=== PATIENT | female | born 1985 | race Caucasian/White ===

== ENCOUNTER 2018-12-12 18:09 | Emergency (ER) | payer MEDICAID ==
[~2018-12-12] VITALS: Ht 172.7 cm; Wt 74.8 kg
--- NOTE | 2018-12-12 18:24 | NUR ---
Patient is Aox4. Patient is seen eating his own food, +good appetite, pending MD evaluation, NAD. Addendum: 12/12/18 at 1847 by JUSTUS ...eating her own food,+good appetite.
[2018-12-12 18:55] LABS: *BLOOD, URINE 3+ (NEGATIVE); *CLARITY,URINE CLOUDY (CLEAR); *COLOR,URINE DARK YELLOW (YELLOW); *KETONES,URINE 1+ (NEGATIVE); LEUKOCYTE ESTERASE ,URINE 1+ (NEGATIVE); NITRITE, URINE NEGATIVE (NEGATIVE); PH,URINE 5.5 (5.0-8.0); UGLUCOSE NEGATIVE (NEGATIVE)
[2018-12-12 18:58] LABS: *BILIRUBIN,URIN 2+ (NEGATIVE); *URINE HCG, QUAL NEGATIVE (NEGATIVE)
[2018-12-12 19:03] LABS: BACTERIA,URINE FEW /HPF (NONE SEEN); SQUAMOUS EPITHELIAL CELL,UR FEW /HPF (NONE SEEN); WBC,URINE 20-50 /HPF (0-3)
--- NOTE | 2018-12-12 19:07 | NUR ---
Recieved report from Emma, pt. resting in bed w/ eyes open, assumed care of pt., Rad. called for negative preg. test result, awaiting nasal xray
--- NOTE | 2018-12-12 19:15 | NUR ---
Rad. tech @ bedside for nasal Xray
--- NOTE | 2018-12-12 19:57 | NUR ---
Patient discharged to home in stable conditon. Written and verbal after care instructions given. Patient verbalizes understanding of instructions. Pt. d/c w/ prescription per MD, d/c papers signed, homeless pt. waiver form signed and custodial information given - pt. declines assistance w/ placement and transportation - she will contact the custodial during normal business hours tomorrow, ID band removed, ambulated out of ED w/ steady gait, NAD
[2018-12-12 20:01] VITALS: BP 121/91
== END 2018-12-12 20:04 | disposition home or self-care (01) ==
LOC: ER 18:09
DX: S00.33XA Contusion of nose, initial encounter (principal); N39.0 Urinary tract infection, site not specified; L98.499 Non-pressure chronic ulcer of skin of other sites with unspecified severity; L08.9 Local infection of the skin and subcutaneous tissue, unspecified; F17.290 Nicotine dependence, other tobacco product, uncomplicated; Z59.0 Homelessness; W51.XXXA Accidental striking against or bumped into by another person, initial encounter; Y93.89 Activity, other specified; Y92.89 Other specified places as the place of occurrence of the external cause; Y99.8 Other external cause status
CPT/HCPCS: 70160; 84703; A4663

== ENCOUNTER 2019-02-14 15:35 | Emergency (ER) | payer MEDICAID ==
[~2019-02-14] VITALS: Ht 172.7 cm; Wt 72.6 kg
[2019-02-14] MEDS ORDERED: HYDROCODONE/APAP 10-325 MG TABLET ONE (16:13)
[2019-02-14] MEDS ORDERED: HYDROCODONE/APAP 10-325 MG TABLET PO ONE (16:15)
--- NOTE | 2019-02-14 16:15 | NUR ---
RECEIVED A 33 Y/O FEMALE PT C/O LT UPPER TOOTH ACHE, SEEN BY MD, GIVEN PAIN KILLER, PT FOR DISCHARGE . DISCHARGE INSTRUCTIONS GIVEN AND PRESCRIPTION GIVEN. PT VERBALIZED UNDERSTANDING. AND GIVEN PRIMARY MILL ROLLER FOR TRANSPORTATION.
== END 2019-02-14 16:21 | disposition home or self-care (01) ==
LOC: ER 15:36
DX: K08.89 Other specified disorders of teeth and supporting structures (principal); F17.200 Nicotine dependence, unspecified, uncomplicated; F15.10 Other stimulant abuse, uncomplicated
CPT/HCPCS: A4663

== ENCOUNTER 2019-02-21 18:29 | Emergency (ER) | payer MEDICAID ==
[~2019-02-21] VITALS: Ht 172.7 cm; Wt 72.6 kg
--- NOTE | 2019-02-21 18:49 | NUR ---
at the bedside for MSE.
[2019-02-21] MEDS ORDERED: HYDROMORPHONE 2 MG/1 ML DISP.SYRIN ONE (18:56)
[2019-02-21] MEDS ORDERED: ONDANSETRON 4 MG/2 ML VIAL ONE (18:56)
[2019-02-21] MEDS ORDERED: HYDROMORPHONE 1 MG/1 ML DISP.SYRIN IM ONE (19:00)
[2019-02-21] MEDS ORDERED: ONDANSETRON 4 MG/2 ML VIAL IM ONE (19:00)
--- NOTE | 2019-02-21 19:01 | NUR ---
Patient given written and verbal discharge instructions. Patient verbalizes understanding of instructions. Patient is ambulatory with steady gait. Refuses offer of [place] [facility] [place]. Patient given list of available shelters in surrounding area.PT REFUSED TO STAY FOR CASTING FINISHER. PT WAS TOLD THAT SHE CAN COME BACK TOMMOROW TO SEE THE CASTING FINISHER. NEW CLOTHING WAS GIVEN TO PT. PT REFUSED SANDWICH AT THIS TIME. PT WAS GVEN THE RESOURCES FOR TAKING CARE OF THE TOOTH PROBLEM. PT SAID WILL FOLLOW UP TOMORROW.
== END 2019-02-21 19:10 | disposition home or self-care (01) ==
LOC: ER 18:29
DX: K08.89 Other specified disorders of teeth and supporting structures (principal); F17.200 Nicotine dependence, unspecified, uncomplicated; F12.10 Cannabis abuse, uncomplicated
CPT/HCPCS: 96372 ×2; 99283; J1170; J2405; A4663

== ENCOUNTER 2019-03-23 14:36 | Emergency (ER) | payer MEDICAID ==
[~2019-03-23] VITALS: Ht 172.7 cm; Wt 74.8 kg
--- NOTE | 2019-03-23 15:47 | NUR ---
Patient discharged to home in stable conditon. Written and verbal after care instructions given. Patient verbalizes understanding of instructions. Pt was seen by the social work program coordinator, pt was given clothes and food, pt declined longterm placement.
--- NOTE | 2019-03-23 15:50 | NUR ---
3:10pm: SS consultation requested. SW arrived to the ED and spoke with TEMI Cervantes regarding patient and need for SS consultation. SW then met with patient, who was in her assigned ED bed. Patient is a 33 year old female, homeless, alert, oriented x 4, cooperative and pleasant, receptive to meeting with this SW. Patient stated that she came to the ED today for wound care on her leg. Patient stated that she has been homeless since 2010, and lives with a friend in a nearby homeless camp. Patient stated she would be going back there after she is discharged. Patient has [employer] insurance, receives GR and food stamps. Hx and current use of cigarettes and meth. Patient provided the ED with the name/phone number of her father, for emergency purposes, and stated that there was no reason to contact him today because she was fine and would be able to return to her previous living arrangement on her own. Patient stated she has a history of mental illness, however was not taking any medications at this time because "I don't like to take a lot of medications". SW then generated a discussion regarding different homeless resources that patient may be interested in, including mental health services and other community resources. SW asked patient if she would like to go to a fci instead of the homeless camp. Patient declined shelters, although was receptive to the resources discussed by this SW. SW provided patient with the following resources: 1) [facility] Homeless Resource Directory which includes a list of locations throughout the [facility], with dates and times, for places homeless individuals can go for hot meals, sack lunches, food pantries, and showers 2) List of mental health clinics, medical clinics, and substance abuse treatment programs throughout the [facility] 3) A list of pharmacies throughout the [facility] 4) A list of year round homeless shelters ([facility], [facility], [facility], [facility]). Patient stated she was receptive to taking this list, just in case she changes in mind in the future. A copy of all the above listed resources were filed in patient's chart. SW provided patient with a pair of pants and a shirt. A meal was also provided to the patient. Patient signed the Homeless Patient Waiver form, and stated that she will provide her own transportation from the ED and return to her previous living arrangement. Patient left the ED with stable gait.
== END 2019-03-23 15:48 | disposition home or self-care (01) ==
LOC: ER 14:36
DX: S01.81XD Laceration without foreign body of other part of head, subsequent encounter (principal); L08.9 Local infection of the skin and subcutaneous tissue, unspecified; F17.200 Nicotine dependence, unspecified, uncomplicated; F15.10 Other stimulant abuse, uncomplicated; X58.XXXD Exposure to other specified factors, subsequent encounter
CPT/HCPCS: A4663

== ENCOUNTER 2019-05-20 08:56 | Emergency (ER) | payer MEDICAID ==
[~2019-05-20] VITALS: Ht 172.7 cm; Wt 72.6 kg
--- NOTE | 2019-05-20 09:30 | NUR ---
CALLED [facility] PER PT'S REQUEST, ETA 2 HOURS.
[2019-05-20 09:44] LABS: *BILIRUBIN,URIN NEGATIVE (NEGATIVE); *BLOOD, URINE 3+ (NEGATIVE); *CLARITY,URINE CLOUDY (CLEAR); *COLOR,URINE YELLOW (YELLOW); *KETONES,URINE NEGATIVE (NEGATIVE); *UROBILINOGEN,URINE 0.2 E.U./dl (NORMAL); LEUKOCYTE ESTERASE ,URINE 1+ (NEGATIVE); NITRITE, URINE POSITIVE (NEGATIVE); UGLUCOSE NEGATIVE (NEGATIVE)
[2019-05-20 09:48] LABS: *URINE HCG, QUAL NEGATIVE (NEGATIVE)
[2019-05-20 09:54] LABS: WBC,URINE TNTC /HPF (0-3)
[2019-05-20 09:55] LABS: BACTERIA,URINE MANY /HPF (NONE SEEN); SQUAMOUS EPITHELIAL CELL,UR FEW /HPF (NONE SEEN)
[2019-05-20] MEDS ORDERED: CEFTRIAXONE 1 G VIAL IM ONE (10:30)
[2019-05-20] MEDS ORDERED: KETOROLAC TROMETHAMINE 30 MG INJ IM ONE (10:30)
[2019-05-20] MEDS ORDERED: KETOROLAC TROMETHAMINE 30 MG INJ ONE (10:33)
[2019-05-20] MEDS ORDERED: CEFTRIAXONE 1 G VIAL ONE (10:33)
--- NOTE | 2019-05-20 10:55 | NUR ---
Pt states does not want to wait longer for SW, and wanting to be discharged.
--- NOTE | 2019-05-20 11:04 | NUR ---
Patient given written and verbal discharge instructions. Patient verbalizes understanding of instructions. Patient is ambulatory with steady gait. Refuses offer of assisted placement. Patient given list of available shelters in surrounding area.
== END 2019-05-20 11:05 | disposition home or self-care (01) ==
LOC: ER 08:56
DX: M54.5 Low back pain (principal); N39.0 Urinary tract infection, site not specified; F17.290 Nicotine dependence, other tobacco product, uncomplicated; F15.10 Other stimulant abuse, uncomplicated; Z59.0 Homelessness
CPT/HCPCS: 81000; 81001; 84703; 87077; 87086; 87186; 96372 ×2; 99283; 99406; J0696; J1885; A4663

== ENCOUNTER 2021-12-12 12:27 | Emergency (ER) | payer MEDICAID ==
[~2021-12-12] VITALS: Ht 172.7 cm; Wt 83.5 kg
--- NOTE | 2021-12-12 12:45 | NUR ---
PT IS IN ROOM #2B. DR CONTE EVALUATED THE PT.
--- NOTE | 2021-12-12 12:54 | NUR ---
PT REFUSED EYE ASESSMENT.
[2021-12-12] MEDS ORDERED: PIPERACILLIN/TAZOBACTAM/D5W 50 ML IV ONE (12:59)
[2021-12-12] MEDS ORDERED: VANCOMYCIN IV 200 ML ONE (12:59)
[2021-12-12] MEDS: VANCOMYCIN IV 1,000 MG in IV DEXTROSE 5% 250 ML IV ONE (13:05)
[2021-12-12] MEDS: PIPERACILLIN SODIUM/TAZOBACTAM 3.375 G in IV DEXTROSE 5% 50 ML IV ONE (14:19)
[2021-12-12] MEDS ORDERED: CEPH500C2 PO (15:41)
[2021-12-12] MEDS ORDERED: SULF1TAB48 PO (15:41)
--- NOTE | 2021-12-12 15:43 | NUR ---
PT WAS D/C'd TO HOME. D/C INSTRUCTIONS GIVEN TO THE PT BY DR CONTE.
[2021-12-12 15:56] VITALS: BP 138/69
== END 2021-12-12 15:58 | disposition home or self-care (01) ==
LOC: ER 12:27
DX: H00.031 Abscess of right upper eyelid (principal); J34.0 Abscess, furuncle and carbuncle of nose; F17.210 Nicotine dependence, cigarettes, uncomplicated; Z59.00 Homelessness unspecified; Z79.899 Other long term (current) drug therapy
CPT/HCPCS: 96365; 96367; 99284; J2543; J3370; A4663

== ENCOUNTER 2021-12-28 12:38 | Emergency (ER) | payer MEDICAID ==
[~2021-12-28] VITALS: Ht 172.7 cm; Wt 77.1 kg
[~2021-12-28 12:38] MED LIST: CEPH500C2 PO; SULF1TAB48 PO
[2021-12-28] MEDS ORDERED: HYDR26CR2 TP (13:23)
--- NOTE | 2021-12-28 13:27 | NUR ---
Patient discharged to home in stable condition. Written and verbal after care instructions given. Patient verbalizes understanding of instructions. Stressed follow up or return to ER for worsening s/s.
== END 2021-12-28 13:43 | disposition home or self-care (01) ==
LOC: ER 12:38
DX: K64.9 Unspecified hemorrhoids (principal); Z59.00 Homelessness unspecified; F31.9 Bipolar disorder, unspecified
CPT/HCPCS: A4663

== ENCOUNTER 2022-02-05 19:45 | Emergency (ER) | payer MEDICAID ==
[~2022-02-05] VITALS: Ht 172.7 cm; Wt 77.1 kg
[~2022-02-05 19:45] MED LIST changes: +HYDR26CR2 TP
--- NOTE | 2022-02-05 20:10 | NUR ---
patient came to the ER c/o redness, swelling and nose discomfort x1 week
[2022-02-05] MEDS ORDERED: AMOX-430 PO (20:45)
--- NOTE | 2022-02-05 20:58 | NUR ---
Patient discharged to home in stable condition. Written and verbal after care instructions given. Patient verbalizes understanding of instructions. Stressed follow up or return to ER for worsening s/s. Patient is A/Ox4, no SOB, no CP, no distress noted. Patient able to ambulate steady gait.
[2022-02-05 21:02] VITALS: BP 128/83
[2022-02-05 21:03] LABS: *URINE HCG, QUAL NEGATIVE (NEGATIVE)
== END 2022-02-05 20:58 | disposition home or self-care (01) ==
LOC: ER 19:46
DX: J34.0 Abscess, furuncle and carbuncle of nose (principal); F31.9 Bipolar disorder, unspecified
CPT/HCPCS: 84703; A4663

== ENCOUNTER 2022-08-19 10:59 | Emergency (ER) | payer MEDICAID ==
[~2022-08-19] VITALS: Ht 172.7 cm; Wt 77.1 kg
[~2022-08-19 10:59] MED LIST changes: +AMOX-430 PO
--- NOTE | 2022-08-19 11:41 | NUR ---
Dr Villavicencio at the bedside for MSE.
--- NOTE | 2022-08-19 12:00 | NUR ---
Pt arrived with c/o pain on the R nares, painful to touch, with redness but no swelling, denies n/v and headache. Seen by Dr. Villavicencio for MSE.
[2022-08-19] MEDS ORDERED: MUPI22OI2 TP (12:47)
[2022-08-19] MEDS ORDERED: DOXY100C5 PO (12:47)
[2022-08-19 13:05] VITALS: BP 145/78
== END 2022-08-19 12:55 | disposition home or self-care (01) ==
LOC: ER 10:59
DX: L73.9 Follicular disorder, unspecified (principal); Z59.00 Homelessness unspecified; F31.9 Bipolar disorder, unspecified; R03.0 Elevated blood-pressure reading, without diagnosis of hypertension
CPT/HCPCS: A4663

== ENCOUNTER 2022-09-20 11:54 | Emergency (ER) | payer MEDICAID ==
[~2022-09-20] VITALS: Ht 172.7 cm; Wt 77.1 kg
[~2022-09-20 11:54] MED LIST changes: +DOXY100C5 PO; +MUPI22OI2 TP
[2022-09-20] MEDS ORDERED: LIDOCAINE 1%-EPI 1:100,000 20 ML VIAL IJ ONE (15:15)
[2022-09-20] MEDS ORDERED: LIDOCAINE 1%-EPI 1:100,000 20 ML VIAL ONE (15:38)
--- NOTE | 2022-09-20 16:16 | NUR ---
Dr Torres performing I&D of cyst on left side of patients neck and explaining to patient the procedure and what is happening.
[2022-09-20] MEDS ORDERED: SULF1TAB48 PO (16:25)
[2022-09-20] MEDS ORDERED: CEPH500T PO (16:25)
--- NOTE | 2022-09-20 16:39 | NUR ---
Visit instructions and discharge prescriptions discussed with patient. pt verbalized understaning. pt left room ambulatory with steady gait.
== END 2022-09-20 16:41 | disposition home or self-care (01) ==
LOC: ER 11:56
DX: L02.818 Cutaneous abscess of other sites (principal); L72.0 Epidermal cyst; Z59.00 Homelessness unspecified; F31.9 Bipolar disorder, unspecified; G89.29 Other chronic pain; M54.9 Dorsalgia, unspecified; F17.200 Nicotine dependence, unspecified, uncomplicated
CPT/HCPCS: 99284; 10060; 76536; J3490; A4663